=== PATIENT | female | born 1950 | race Caucasian/White ===

== ENCOUNTER → 2019-03-27 08:34 | Outpatient (CLI) | payer MEDICARE, OTHER, SELFPAY ==
--- NOTE | 2019-03-27 | DI.RAD.S_ITS ---
PROCEDURE: FL KNEE INJECTION MR/CT RT INDICATIONS: RIGHT KNEE PAIN TECHNIQUE: The indications, alternatives, benefits, risks, and complications of the procedure were explained to the patient. Written informed consent was obtained and placed in the chart. The knee was examined fluoroscopically, and a site chosen for knee joint injection. The skin was prepped and draped in a sterile fashion, and 1% Lidocaine infiltrated from the skin down to the articular surface. A hypodermic needle was then introduced into the joint and iodinated contrast media was instilled to confirm the intra-articular needle tip placement. This was followed by approximately 50 mL dilute solution of a gadolinium containing MR contrast agent. The needle was removed and a bandage was applied. An Joshua wrap was then applied around the knee joint to keep the contrast from collecting in the suprapatellar recess. The patient experienced no complications throughout the procedure and left the fluoroscopic suite in no apparent distress. FINDINGS: Single fluoroscopic spot image demonstrates intra-articular location to injected iodinated contrast. IMPRESSION: Successful fluoroscopically guided administration of dilute Gadolinium solution into the knee joint for MR arthrogram. Dictated by: Esperanza Kaur M.D. on 03/27/2019 at 10:32 Approved by: Esperanza Kaur M.D. on 03/27/2019 at 10:32
--- NOTE | 2019-03-27 | DI.MRI.S_ITS ---
PROCEDURE: MR KNEE RT W CON INDICATIONS: RIGHT KNEE PAIN TECHNIQUE: After the administration of 50 mL of dilute intra-articular Gadolinium contrast, sagittal T1 spin echo with fat saturation and PD fast spin echo with fat saturation, coronal T1 spin echo with and without fat saturation, coronal T2 fast spin echo with fat saturation, axial PD fast spin echo with fat saturation through the knee. COMPARISON: [facility], [place], [place] KNEE INJECTION MR/CT RT, 03/27/2019, 9:07. FINDINGS: Image quality: Excellent. Menisci: There is a horizontal tear involving the anterior horn and body of the lateral meniscus, extending to the anterior root ligament. The medial meniscus demonstrates normal morphology and internal signal. Cruciate ligaments: The anterior and posterior cruciate ligaments appear intact. Medial structures: The medial collateral ligament appears intact. The semimembranosus tendon and meniscocapsular junction appear intact. Visualized portions of the pes anserinus tendons appear normal. No abnormal bursal fluid. Lateral structures: The lateral collateral ligament and the biceps femoris tendon appear intact. The popliteus tendon appears normal. Iliotibial band appears normal. Anterior structures: The quadriceps and patellar tendons appear intact. Mild lateral subluxation of patella. No femoral trochlear dysplasia or ventral trochlear prominence. No edema in the infrapatellar fat pad. Bone and cartilage: No bone marrow contusions or fractures. There is tricompartmental cartilage loss, most pronounced and severe in the lateral femorotibial compartment. Joint space: There is a moderate-sized Acharya's cyst. Normal appearing synovial plicae are incidentally noted. There is a 5 mm intra-articular body in the left anterior knee joint. IMPRESSION: 1. Horizontal tear of the anterior horn and body of the lateral meniscus. 2. Tricompartmental cartilage loss. 3. A 5 mm intrathecal body in the left anterior knee joint. Dictated by: Esperanza Kaur M.D. on 03/27/2019 at 10:33 Approved by: Esperanza Kaur M.D. on 03/27/2019 at 11:49
== END ==
PROVIDERS: PCP Family Medicine; Visit Provider Family Medicine
DX: M25.561 Pain in right knee (principal); S83.281A Other tear of lateral meniscus, current injury, right knee, initial encounter; M71.21 Synovial cyst of popliteal space [Baker], right knee
CPT/HCPCS: 27369; 73722; 77002

== ENCOUNTER 2019-11-04 11:35 | Emergency (ER) | payer MEDICARE, OTHER, SELFPAY ==
[2019-11-04 11:40] VITALS: BP 154/77; PULSE 86; RESP 18; O2SAT 100
--- NOTE | 2019-11-04 11:55 | ED.GENADULT ---
HPI - General Adult <BRANDON Alba-BC - Last Filed: 11/04/19 17:25> General Chief complaint: Back Pain/Injury Stated complaint: fell 5 times last night, left leg weakness Time Seen by Provider: 11/04/19 11:45 Source: patient and family Mode of arrival: Ambulatory Limitations: no limitations History of Present Illness HPI narrative: The patient is a 69-year-old female nonsmoker with history of hypertension hyperlipidemia who presents with a chief complaint of left leg weakness. She states that 18 hours ago, she started having pain in her lower back radiating down the back of her left leg. She feels like her leg is ? at times she denies any numbness or tingling. She denies any precipitating injury. She denies any other weakness, headache chest pain shortness of breath nausea vomiting diarrhea abdominal pain. She states that she has some pain in her knees from when she landed. She and her deny any confusion, slurred speech. She states that the left leg weakness sensation started with lower back pain. She also complains of left knee pain from 1 of her falls yesterday. She denies any visual deficits, fevers. The patient states that she did take an unknown muscle relaxer last night at 7:00 p.m. to help with her lower back pain. The patient describes the pain in her lower back as shooting, tingling electricity. Related Data Previous Rx's Medication Instructions Recorded ketorolac 10 mg PO TID PRN #15 tab 11/04/19 lidocaine 1 patch TOP DAILY PRN #15 each 11/04/19 Review of Systems <MAYO Alba - Last Filed: 11/04/19 17:25> Review of Systems Narrative: GENERAL: Denies chills, fatigue, malaise, fever, sweats. HEENT: Denies sinus pain, ear pain, sore throat, difficulty swallowing, dizziness. RESPIRATORY: Denies dyspnea, cough, wheezing, hemoptysis, sputum. CARDIOVASCULAR: Denies chest pain, palpitations, orthopnea, edema, GASTROINTESTINAL: Denies nausea, vomiting, abdominal pain, diarrhea, constipation, melena. : Denies dysuria, frequency, incontinence, hematuria, urinary retention. MUSCULOSKELETAL: See HPI SKIN: Denies rash, skin lesions, or other NEUROLOGIC: See HPI PSYCHIATRIC: No concerning psychosocial issues. 12 point review of systems is negative except for those stated above Patient History <DARIA Alba - Last Filed: 11/04/19 17:25> Social History Smoking Status: Never smoker Exam <DARIA Alba - Last Filed: 11/04/19 17:25> Narrative Exam Narrative: GENERAL: This is a well-nourished, well-developed patient, in no acute distress HEAD: Atraumatic. Normocephalic. No temporal or scalp tenderness. EYES: Pupils equal round and reactive. Extraocular motions intact. No scleral icterus. No injection or drainage. ENT: Nose without bleeding, purulent drainage or septal hematoma. Throat without erythema, tonsillar hypertrophy or exudate. Uvula midline. Airway patent. NECK: Trachea midline. No JVD or lymphadenopathy. Supple, nontender, no meningeal signs. CARDIOVASCULAR: Regular rate and rhythm without murmurs, gallops, or rubs. RESPIRATORY: Clear to auscultation. Breath sounds equal bilaterally. No cough. No increased respiratory effort. No accessory muscle use. GASTROINTESTINAL: Abdomen soft, non-tender, nondistended. No hepato-splenomegaly, or palpable masses. No guarding. EXTREMITIES: No clubbing, cyanosis, or edema. No joint tenderness, effusion, or edema noted. Strength is equal upper and lower extremities bilaterally. BACK: No pain to cervical or thoracic spine. Pain to lumbar spine palpation. No palpable step-offs or deformities. NEURO: AOx3. Sensation intact upper and lower extremities bilaterally. No gross cranial nerve deficit. Finger-nose test intact. SKIN: Slight ecchymosis noted on prepatellar region of left knee. Initial Vital Signs Initial Vital Signs: Vital Signs Pulse Rate 86 11/04/19 11:40 Respiratory Rate 18 11/04/19 11:40 Blood Pressure 154/77 H 11/04/19 11:40 Pulse Oximetry 100 11/04/19 11:40 <Tao Ly DO - Last Filed: 11/04/19 19:53> Initial Vital Signs Initial Vital Signs: Vital Signs Pulse Rate 86 11/04/19 11:40 Respiratory Rate 18 11/04/19 11:40 Blood Pressure 154/77 H 11/04/19 11:40 Pulse Oximetry 100 11/04/19 11:40 Scores <MAYO AlbaBC - Last Filed: 11/04/19 17:25> GCS [place] coma scale eye opening: Spontaneous [place] coma scale verbal response: Orientated [place] coma scale motor response: Obey commands [place] coma scale total score: 15 NIH Stroke Scale Level of Conciousness: Alert, keenly responsive Ask month/age: Answers both questions correctly. Open/close eyes, close hand: Performs both tasks correctly Best gaze horizontal: Normal Facial palsy: Normal symetrical movement Left arm drift: No drift for full 10 sec Right arm drift: No drift for full 10 sec Left leg drift: No drift for full 10 sec Right leg drift: No drift for full 10 sec Limb ataxia: Absent Best language: No aphasia, normal Dysarthria: Normal Extinction or inattention: No abnormality Course <DARIA Alba - Last Filed: 11/04/19 17:25> Orders Ordered: ED Orders 11/04/19 12:06 CT head/brain wo con Stat XR knee LT 3V Stat XR lumbar spine 2-3V Stat 11/04/19 13:00 Complete Blood Count AUTO DIFF Stat Comprehensive Metabolic Panel Stat Partial Thromboplastin Time Stat Prothrombin Time INR Stat Discontinued Medications Ketorolac Tromethamine (Toradol) 30 mg IM NOW ONE Stop: 11/04/19 13:42 Last Admin: 11/04/19 13:47 Dose: 30 mg Documented by: LOUISE Lidocaine (Lidoderm) 1 each TOP NOW ONE Stop: 11/04/19 13:29 Last Admin: 11/04/19 13:47 Dose: 1 each Documented by: LOUISE Prednisone (Deltasone) 60 mg PO NOW ONE Stop: 11/04/19 13:29 Vital Signs Vital signs: Vital Signs - 8 hr 11/04/19 13:55 Pulse Rate 79 Blood Pressure [Right Arm] 155/72 H Pulse Oximetry 98 <Tao Ly DO - Last Filed: 11/04/19 19:53> Orders Ordered: ED Orders 11/04/19 12:06 CT head/brain wo con Stat XR knee LT 3V Stat XR lumbar spine 2-3V Stat 11/04/19 13:00 Complete Blood Count AUTO DIFF Stat Comprehensive Metabolic Panel Stat Partial Thromboplastin Time Stat Prothrombin Time INR Stat Discontinued Medications Ketorolac Tromethamine (Toradol) 30 mg IM NOW ONE Stop: 11/04/19 13:42 Last Admin: 11/04/19 13:47 Dose: 30 mg Documented by: LOUISE Lidocaine (Lidoderm) 1 each TOP NOW ONE Stop: 11/04/19 13:29 Last Admin: 11/04/19 13:47 Dose: 1 each Documented by: LOUISE Prednisone (Deltasone) 60 mg PO NOW ONE Stop: 11/04/19 13:29 Vital Signs Vital signs: Vital Signs - 8 hr 11/04/19 13:55 Pulse Rate 79 Blood Pressure [Right Arm] 155/72 H Pulse Oximetry 98 Medical Decision Making <Nely Bobby, BRANDON-BC - Last Filed: 11/04/19 17:25> Lab Data Result diagrams: 11/04/19 13:00 11/04/19 13:00 Labs: Lab Results 11/04/19 11/04/19 11/04/19 Range/Units 13:00 13:00 13:00 WBC 5.1 (4.5-11.0) X10^3/uL RBC 3.96 L (4.0-5.2) X10^6/uL Hgb 12.3 (12.0-16.0) g/dL Hct 37.0 (36-46) % MCV 93.3 (80-100) fL MCH 30.9 (26-34) PG MCHC 33.2 (30-36) % RDW 13.2 (11.6-14.8) % Plt Count 252 (150-400) X10^3/uL Neut % (Auto) 46.5 L (50-75) % Lymph % (Auto) 35.0 (25-40) % Swisher % (Auto) 8.6 (3-14) % Eos % (Auto) 9.2 H (2-4) % Baso % (Auto) 0.7 (0-2) % Neut # (Auto) 2400 (6335-2499) /uL Lymph # (Auto) 1800 (7379-7313) /uL Swisher # (Auto) 400 (0-900) /uL Eos # (Auto) 500 H (0-450) /uL Baso # (Auto) 0 (0-100) /uL PT 11.5 (10.1-12.7) SECONDS INR 1.0 (0.9-1.3) APTT 31 (26.4-36.2) SECONDS Sodium 142 (137-145) mmol/L Potassium 4.0 (3.4-5.1) mmol/L Chloride 105 (98-107) mmol/L Carbon Dioxide 28 (22-32) mmol/L BUN 15 (7-17) mg/dL Creatinine 0.70 (0.52-1.04) mg/dL Estimated GFR > 60.0 (>60) mL/min BUN/Creatinine Ratio 21.4 (6-22) Glucose 120 H (80-110) mg/dL Calcium 9.3 (8.4-10.2) mg/dL Total Bilirubin 0.5 (0.2-1.3) mg/dL AST 31 (14-36) IU/L ALT 21 (<35) IU/L Alkaline Phosphatase 82 (38-126) U/L Total Protein 7.6 (6.3-8.2) g/dL Albumin 4.3 (3.5-5.0) g/dL Globulin 3.3 (1.7-4.1) g/dL Albumin/Globulin Ratio 1.3 (1.0-2.8) Urine Dip Bedside Urine Glucose Negative Bedside Urine Bilirubin - Negative Bedside Urine Ketone - Negative Urine Specific Leslie 1.010 Bedside Urine Occult Blood - Negative Bedside Urine pH 7.0 Bedside Urine Protein - Negative Bedside Urine Urobilinogen - Negative Bedside Urine Nitrite - Negative Bedside Urine Leukocytes - Negative Esterase Point of care testing: Urine Dip Bedside Urine Glucose Negative Bedside Urine Bilirubin - Negative Bedside Urine Ketone - Negative Urine Specific Leslie 1.010 Bedside Urine Occult Blood - Negative Bedside Urine pH 7.0 Bedside Urine Protein - Negative Bedside Urine Urobilinogen - Negative Bedside Urine Nitrite - Negative Bedside Urine Leukocytes - Negative Esterase Imaging Data Extremity x-ray #1: Radiologist's Impression: [address] [place] [id number] XRay Report Signed Patient: Kacy Martínez LMR#: [id number] : 1950cct:[id number] Age/Sex: 69 / FDate of Service: 11/04/19 Loc: ED Accession Number: [id number] Procedure: XR knee LT 3V Ordering Provider: Nely Bobby- PROCEDURE: XR KNEE LT 3V INDICATIONS: pain sp fall TECHNIQUE: 3 views of the knee were acquired. COMPARISON: None. FINDINGS: Bones: No fractures or dislocations. No suspicious bony lesions. Mild degenerative changes within the patellofemoral compartment are present. Soft tissues: No joint effusion. No suspicious soft tissue calcifications. IMPRESSION: No acute fractures of the left knee. Dictated by: Dillon Garza M.D. on 11/04/2019 at 11:45 CT scan - head: Radiologist's Impression: [address] [place] [id number] Scan Report Signed Patient: Kacy Martínez LMR#: [id number] : 2Acct:[id number] Age/Sex: 69 / FDate of Service: 11/04/19 Loc: ED Accession Number: [id number] Procedure: CT head/brain wo con Ordering Provider: Nely Bobby CUSTOMER DEVELOPMENT MANAGER- PROCEDURE: CT HEAD/BRAIN WO CON INDICATIONS: left leg weakness TECHNIQUE: Noncontrast 4.5 mm thick angled axial sections acquired from the foramen magnum to the vertex, with coronal and sagittal reformats. For radiation dose reduction, the following was used: automated exposure control, adjustment of mA and/or kV according to patient size. COMPARISON: [facility], MR, BRAIN ([facility]) W&WO CONTRAST, 09/09/2014, 16:41. FINDINGS: Image quality: Excellent. CSF spaces: Basal cisterns are patent. No extra-axial fluid collections. Ventricles are normal in size and shape. Brain: No midline shift. No intracranial masses or hemorrhage. Serrano-white matter interface is normal. Skull and face: Calvarium and visualized facial bones are intact, without suspicious lesions. Sinuses: Visualized sinuses and mastoids are clear. IMPRESSION: Negative head CT. No acute intracranial hemorrhage. Dictated by: Dillon Garza M.D. on 11/04/2019 at 11:49 Approved by: Dillon Garza M.D. on 11/04/2019 at 11:49 lumbar xray : Radiologist's Impression: [address] [place] [id number] XRay Report Signed Patient: Kacy Martínez LMR#: [id number] : 2Acct:[id number] Age/Sex: 69 / FDate of Service: 11/04/19 Loc: ED Accession Number: [id number] Procedure: XR lumbar spine 2-3V Ordering Provider: Nely Bobby PROCEDURE: XR LUMBAR SPINE 2-3V INDICATIONS: pain TECHNIQUE: 3 views of the lumbar spine were acquired. COMPARISON: None. FINDINGS: Bones: There are 5 lumbar-type vertebral bodies. The lowest intervertebral disk space is designated as L5-S1. The vertebral body heights are well-maintained without evidence to suggest an acute compression fracture. The bone mineralization is within normal limits. There is grade 1 anterolisthesis of L4 and L5 by approximately 5 mm. No definite pars interarticularis defects are evident. Moderate multilevel degenerative changes of the lumbar spine are primarily evident involving the mid to lower lumbar facet joints. Intervertebral disc heights are relatively well-maintained. Degenerative changes of the sacroiliac joints and bilateral hips are not well characterized. Soft tissues: There is aortic atherosclerosis. Clips within the pelvis are suggestive of prior tubal ligation. soft tissues of the imaged abdomen and pelvis are within normal limits. IMPRESSION: 1. No displaced lumbar fractures. 2. Moderate degenerative changes of the lumbar spine. 3. Grade 1 spondylolisthesis at L4-5. Dictated by: Dillon Garza M.D. on 11/04/2019 at 11:45 Approved by: Dillon Garza M.D. on 11/04/2019 at 11:47 MDM Narrative Medical decision making narrative: The patient is a 69-year-old male who presents with a chief complaint of 18 hours of left leg weakness. Her NIH is 0, she has a normal head CT, given the correlating lower back pain, this pain is likely due to sciatica. I offered prednisone, but the patient does not take steroids. We elected to do Toradol and she states understand not combining that with any other NSAIDs. She responded well to a single dose of Toradol. She is able to ambulate around the emergency department with no acute concerns. I discussed at length the importance of follow-up with primary care provider, come back emergency department for any acute concerns. Patient has no questions or concerns upon discharge and states understanding of return precautions as well as follow-up care. <Tao Ly DO - Last Filed: 11/04/19 19:53> Lab Data Labs: Lab Results 02/23/20 02/23/20 02/23/20 Range/Units 13:00 13:00 13:00 WBC 5.1 (4.5-11.0) X10^3/uL RBC 3.96 L (4.0-5.2) X10^6/uL Hgb 12.3 (12.0-16.0) g/dL Hct 37.0 (36-46) % MCV 93.3 (80-100) fL MCH 30.9 (26-34) PG MCHC 33.2 (30-36) % RDW 13.2 (11.6-14.8) % Plt Count 252 (150-400) X10^3/uL Neut % (Auto) 46.5 L (50-75) % Lymph % (Auto) 35.0 (25-40) % Swisher % (Auto) 8.6 (3-14) % Eos % (Auto) 9.2 H (2-4) % Baso % (Auto) 0.7 (0-2) % Neut # (Auto) 2400 (0706-1420) /uL Lymph # (Auto) 1800 (2159-2003) /uL Swisher # (Auto) 400 (0-900) /uL Eos # (Auto) 500 H (0-450) /uL Baso # (Auto) 0 (0-100) /uL PT 11.5 (10.1-12.7) SECONDS INR 1.0 (0.9-1.3) APTT 31 (26.4-36.2) SECONDS Sodium 142 (137-145) mmol/L Potassium 4.0 (3.4-5.1) mmol/L Chloride 105 (98-107) mmol/L Carbon Dioxide 28 (22-32) mmol/L BUN 15 (7-17) mg/dL Creatinine 0.70 (0.52-1.04) mg/dL Estimated GFR > 60.0 (>60) mL/min BUN/Creatinine Ratio 21.4 (6-22) Glucose 120 H (80-110) mg/dL Calcium 9.3 (8.4-10.2) mg/dL Total Bilirubin 0.5 (0.2-1.3) mg/dL AST 31 (14-36) IU/L ALT 21 (<35) IU/L Alkaline Phosphatase 82 (38-126) U/L Total Protein 7.6 (6.3-8.2) g/dL Albumin 4.3 (3.5-5.0) g/dL Globulin 3.3 (1.7-4.1) g/dL Albumin/Globulin Ratio 1.3 (1.0-2.8) Urine Dip Bedside Urine Glucose Negative Bedside Urine Bilirubin - Negative Bedside Urine Ketone - Negative Urine Specific Leslie 1.010 Bedside Urine Occult Blood - Negative Bedside Urine pH 7.0 Bedside Urine Protein - Negative Bedside Urine Urobilinogen - Negative Bedside Urine Nitrite - Negative Bedside Urine Leukocytes - Negative Esterase Point of care testing: Urine Dip Bedside Urine Glucose Negative Bedside Urine Bilirubin - Negative Bedside Urine Ketone - Negative Urine Specific Leslie 1.010 Bedside Urine Occult Blood - Negative Bedside Urine pH 7.0 Bedside Urine Protein - Negative Bedside Urine Urobilinogen - Negative Bedside Urine Nitrite - Negative Bedside Urine Leukocytes - Negative Esterase Discharge Plan Departure Patient Disposition: Home Clinical Impression: Lumbar back pain Acute low back pain Qualifiers: Back pain laterality: left Sciatica presence: with sciatica Sciatica laterality: sciatica of left side Qualified Code(s): M54.42 - Lumbago with sciatica, left side Acute knee pain Qualifiers: Laterality: left Qualified Code(s): M25.562 - Pain in left knee Discharge Date/Time: 11/04/19 14:51 Instructions: DI for Low Back Pain, DI for Sciatica, How To Perform RICE (Rest, Ice, Compress, Elevate), DI for Knee Pain Activity Restrictions/Additional Instructions: As discussed, I sent in a prescription of Toradol as well as lidocaine patches to [facility] As discussed your x-rays came back with no acute fractures. I have given you a prescription of Toradol. This is an NSAID. Do not combine it with other NSAIDs such as Aleve or ibuprofen. I suggest taking it with some food, as it can irritate your stomach. Please follow-up with primary care provider next few days. Please come back to the emergency department for any acute concerns. Please remember this includes incontinence of bowel, numbness in your groin or any acute concerns Prescriptions: New ketorolac 10 mg tablet 10 mg PO TID PRN (Reason: pain) Qty: 15 RF: 0 lidocaine 5 % adhesive patch,medicated 1 patch TOP DAILY PRN (Reason: pain ) Qty: 15 RF: 0 Referrals: Karena Richey MD [Primary Care Provider] -
--- NOTE | 2019-11-04 12:06 | DI.RAD.S_ITS ---
PROCEDURE: XR LUMBAR SPINE 2-3V INDICATIONS: pain TECHNIQUE: 3 views of the lumbar spine were acquired. COMPARISON: None. FINDINGS: Bones: There are 5 lumbar-type vertebral bodies. The lowest intervertebral disk space is designated as L5-S1. The vertebral body heights are well-maintained without evidence to suggest an acute compression fracture. The bone mineralization is within normal limits. There is grade 1 anterolisthesis of L4 and L5 by approximately 5 mm. No definite pars interarticularis defects are evident. Moderate multilevel degenerative changes of the lumbar spine are primarily evident involving the mid to lower lumbar facet joints. Intervertebral disc heights are relatively well-maintained. Degenerative changes of the sacroiliac joints and bilateral hips are not well characterized. Soft tissues: There is aortic atherosclerosis. Clips within the pelvis are suggestive of prior tubal ligation. soft tissues of the imaged abdomen and pelvis are within normal limits. IMPRESSION: 1. No displaced lumbar fractures. 2. Moderate degenerative changes of the lumbar spine. 3. Grade 1 spondylolisthesis at L4-5. Dictated by: Dillon Garza M.D. on 11/04/2019 at 11:45 Approved by: Dillon Garza M.D. on 11/04/2019 at 11:47
--- NOTE | 2019-11-04 12:06 | DI.CT.S_ITS ---
PROCEDURE: CT HEAD/BRAIN WO CON INDICATIONS: left leg weakness TECHNIQUE: Noncontrast 4.5 mm thick angled axial sections acquired from the foramen magnum to the vertex, with coronal and sagittal reformats. For radiation dose reduction, the following was used: automated exposure control, adjustment of mA and/or kV according to patient size. COMPARISON: [facility], MR, BRAIN ([facility]) W&WO CONTRAST, 09/09/2014, 16:41. FINDINGS: Image quality: Excellent. CSF spaces: Basal cisterns are patent. No extra-axial fluid collections. Ventricles are normal in size and shape. Brain: No midline shift. No intracranial masses or hemorrhage. Serrano-white matter interface is normal. Skull and face: Calvarium and visualized facial bones are intact, without suspicious lesions. Sinuses: Visualized sinuses and mastoids are clear. IMPRESSION: Negative head CT. No acute intracranial hemorrhage. Dictated by: Dillon Garza M.D. on 11/04/2019 at 11:49 Approved by: Dillon Garza M.D. on 11/04/2019 at 11:49
--- NOTE | 2019-11-04 12:06 | DI.RAD.S_ITS ---
PROCEDURE: XR KNEE LT 3V INDICATIONS: pain sp fall TECHNIQUE: 3 views of the knee were acquired. COMPARISON: None. FINDINGS: Bones: No fractures or dislocations. No suspicious bony lesions. Mild degenerative changes within the patellofemoral compartment are present. Soft tissues: No joint effusion. No suspicious soft tissue calcifications. IMPRESSION: No acute fractures of the left knee. Dictated by: Dillon Garza M.D. on 11/04/2019 at 11:45 Approved by: Dillon Garza M.D. on 11/04/2019 at 11:45
[2019-11-04 13:20] LABS: Prothrombin Time 11.5 SECONDS (10.1-12.7)
[2019-11-04 13:23] LABS: PTT Partial Thromboplastin Tim 31 SECONDS (26.4-36.2)
[2019-11-04 13:25] LABS: Add Manual Diff / Slide Review NO; Basophils Absolute Auto 0 /uL (0-100); Basophils Percent Auto 0.7 % (0-2); Eosinophils Absolute Auto 500 /uL (0-450); Eosinophils Percent Auto 9.2 % (2-4); Hemoglobin 12.3 g/dL (12.0-16.0); Lymphocytes Absolute Auto 1800 /uL (1100-4500); Mean Corpuscular HGB Conc 33.2 % (30-36); Mean Corpuscular Hemoglobin 30.9 PG (26-34); Mean Corpuscular Volume 93.3 fL (80-100); Monocytes Absolute Auto 400 /uL (0-900); Monocytes Percent Auto 8.6 % (3-14); Neutrophils Absolute Auto 2400 /uL (1500-7000); Neutrophils Percent Auto 46.5 % (50-75); Platelet Count 252 X10^3/uL (150-400); Red Blood Cell Count 3.96 X10^6/uL (4.0-5.2); Red Cell Distribution Width 13.2 % (11.6-14.8); White Blood Cell Count 5.1 X10^3/uL (4.5-11.0)
[2019-11-04 13:29] LABS: Alanine Aminotransferase 21 IU/L (<35); Albumin 4.3 g/dL (3.5-5.0); Albumin Globulin Ratio 1.3 (1.0-2.8); Alkaline Phosphatase 82 U/L (38-126); Aspartate Aminotransferase 31 IU/L (14-36); BUN Creatinine Ratio 21.4 (6-22); Bilirubin Total 0.5 mg/dL (0.2-1.3); Blood Urea Nitrogen 15 mg/dL (7-17); Calcium 9.3 mg/dL (8.4-10.2); Carbon Dioxide 28 mmol/L (22-32); Chloride 105 mmol/L (98-107); Estimated Glomerular Filt Rate > 60.0 mL/min (>60); Globulin 3.3 g/dL (1.7-4.1); Glucose 120 mg/dL (80-110); HEMOLYSIS < 15 (0-50); Sodium 142 mmol/L (137-145); Total Protein 7.6 g/dL (6.3-8.2)
[2019-11-04] MEDS: LIDOCAINE PATCH 1 EACH ADH..PATCH TOP (13:47)
[2019-11-04] MEDS: KETOROLAC 60 MG/2 ML VIAL 30 MG IM (13:47)
[2019-11-04 13:55] VITALS: BP 155/72; PULSE 79; O2SAT 98
== END 2019-11-04 14:51 | disposition home or self-care (01) ==
PROVIDERS: Emergency Provider Nurse Practitioner Family; PCP Family Medicine
DX: M54.6 Pain in thoracic spine (principal); M54.42 Lumbago with sciatica, left side; M25.562 Pain in left knee; R53.1 Weakness; W19.XXXA Unspecified fall, initial encounter; R29.6 Repeated falls
CPT/HCPCS: 70450; 72100; 73562; 80053; 81003; 85025; 85610; 85730; 96372; 99284; J1885

== ENCOUNTER → 2020-08-18 15:57 | Outpatient (CLI) | payer MEDICARE, OTHER, SELFPAY ==
--- NOTE | 2020-08-18 | DI.MG.S_ITS ---
BILATERAL DIGITAL SCREENING MAMMOGRAM 3D/2D WITH CAD: 08/18/2020 CLINICAL: Routine screening. Comparison is made to exams dated: 08/11/2018 mammogram, 07/20/2017 mammogram, and 03/17/2015 mammogram - outside location. The tissue of both breasts is heterogeneously dense. This may lower the sensitivity of mammography. Current study was also evaluated with a Computer Aided Detection (CAD) system. No significant masses, calcifications, or other findings are seen in either breast. There has been no significant interval change. IMPRESSION: NEGATIVE There is no mammographic evidence of malignancy. A 1 year screening mammogram is recommended. This exam was interpreted at Station ID: [id number]. NOTE: For mammograms, a report in lay terms will be sent to the patient. Approximately 15% of breast malignancies will not be visualized mammographically. In the management of a palpable breast mass, a negative mammogram must not discourage biopsy of a clinically suspicious lesion. Electronically Signed By: Rashel solo/sanjay:08/18/2020 19:43:57 letter sent: Normal Exam ACR BI-RADS Category 1: Negative 3341F
== END ==
PROVIDERS: PCP Family Medicine; Referring Provider Family Medicine; Visit Provider Family Medicine
DX: Z12.31 Encounter for screening mammogram for malignant neoplasm of breast (principal)
CPT/HCPCS: 77063; 77067

== ENCOUNTER → 2021-08-29 11:10 | Outpatient (CLI) | payer MEDICARE, OTHER, SELFPAY ==
--- NOTE | 2021-08-29 11:12 | DI.MG.S_ITS ---
BILATERAL DIGITAL SCREENING MAMMOGRAM 3D/2D WITH CAD: 08/29/2021 CLINICAL: Routine screening. Comparison is made to exams dated: 08/18/2020 mammogram - [facility], 08/11/2018 mammogram, and 07/20/2017 mammogram - outside location. The tissue of both breasts is heterogeneously dense. This may lower the sensitivity of mammography. Current study was also evaluated with a Computer Aided Detection (CAD) system. No significant masses, calcifications, or other findings are seen in either breast. There has been no significant interval change. IMPRESSION: NEGATIVE There is no mammographic evidence of malignancy. A 1 year screening mammogram is recommended. This exam was interpreted at Station ID: [id number]. NOTE: For mammograms, a report in lay terms will be sent to the patient. Approximately 15% of breast malignancies will not be visualized mammographically. In the management of a palpable breast mass, a negative mammogram must not discourage biopsy of a clinically suspicious lesion. Electronically Signed By: Rashel solo/sanjay:08/31/2021 08:14:40 letter sent: Normal Exam ACR BI-RADS Category 1: Negative [id number]
== END ==
PROVIDERS: PCP Orthopaedic Surgery; Referring Provider Orthopaedic Surgery; Visit Provider Orthopaedic Surgery
DX: Z12.31 Encounter for screening mammogram for malignant neoplasm of breast (principal)
CPT/HCPCS: 77063; 77067

== ENCOUNTER → 2021-09-08 11:21 | Outpatient (CLI) | payer MEDICARE, OTHER, SELFPAY ==
--- NOTE | 2021-09-08 | DI.RAD.S_ITS ---
PROCEDURE: XR DEXA AXIAL SKELETON INDICATIONS: Other specified health status COMPARISON: None. FINDINGS: This blank DEXA report has been sent in error by the PACS system. The correct and complete report will be forthcoming in 1-2 days. Thank you for your patience and understanding. Dictated by: Rabia Lozada MD, PhD on 09/08/2021 at 12:31 Approved by: Rabia Lozada MD, PhD on 09/08/2021 at 12:31
== END ==
PROVIDERS: PCP Family Medicine; Referring Provider Family Medicine; Visit Provider Family Medicine
DX: M85.851 Other specified disorders of bone density and structure, right thigh (principal); Z78.0 Asymptomatic menopausal state
CPT/HCPCS: 77080

== ENCOUNTER → 2023-12-13 08:16 | Outpatient (CLI) | payer MEDICARE, OTHER, SELFPAY ==
--- NOTE | 2023-12-13 08:17 | DI.US.S_ITS ---
PROCEDURE: US THYROID INDICATIONS: HYPOTHYROIDISM TECHNIQUE: Real-time scanning was performed of the thyroid gland, with image documentation. COMPARISON: None. FINDINGS: Thyroid: The thyroid is not well seen. No thyroid masses are seen. IMPRESSION: The thyroid is not well seen and is believed to be atrophic. ACR TI-RADS definitions and recommendations: TI-RADS 1 (benign): 0 points. FNA not needed. TI-RADS 2 (not suspicious): 2 points. FNA not needed. TI-RADS 3 (mildly suspicious): 3 points. * FNA if 2.5 cm or larger, follow up if 1.5 cm or larger (at 1, 3, and 5 years). TI-RADS 4 (moderately suspicious): 4-6 points. * FNA if 1.5 cm or larger, follow up if 1 cm or larger (at 1, 2, 3, and 5 years). TI-RADS 5 (highly suspicious): 7 points or more. * FNA if 1 cm or larger, follow up if 0.5 cm or larger (every year for 5 years). Dictated by: Remigio Whittaker M.D. on 12/13/2023 at 10:51 Approved by: Remigio Whittaker M.D. on 12/13/2023 at 10:52
--- NOTE | 2023-12-13 08:18 | DI.RAD.S_ITS ---
Bone Density Report Name: TEE GRAY Age: 73 Sex: Female Ethnicity: White Date of : 1950 Indication: postmenopausal; screening for osteoporosis; Referring Provider: ANTHONY MAXWELL Study: Bone densitometry was performed. Exam Date: December 13, 2023 Accession number: [id number] Bone Density: Region BMD T-score Z-score Classification AP Spine(L1-L4) 0.981 -0.6 1.6 Normal Femoral Neck (Left) 0.671 -1.6 0.3 Osteopenia Total Hip (Left) 0.931 -0.1 1.5 Normal Femoral Neck (Right) 0.707 -1.3 0.6 Osteopenia Total Hip (Right) 0.898 -0.4 1.2 Normal Total Hip Mean 0.915 -0.3 1.4 Normal World Health Organization criteria for BMD impression classify patients as: Normal (T-score at or above -1.0), Osteopenia (T-score between -1.0 and -2.5), or Osteoporosis (T-score at or below -2.5). 10-year Fracture Risk(1): Major Osteoporotic Fracture 10% Hip Fracture 1.7% Reported Risk Factors: [place] (), Neck BMD=0.671, BMI=30.2 (1) FRAX(R) Version 3.08. Fracture probability calculated for an untreated patient. Fracture probability may be lower if the patient has received treatment. Previous Exams: -- Region Exam Age BMD T-score BMD Change BMD Change Date g/cm2 vs Baseline vs Previous -- AP Spine (L1-L4) 12/13/2023 73 0.981 -0.6 -0.003 (-0.4%)# -0.003 (-0.4%)# 09/08/2021 71 0.985 -0.6 Total Hip(Left) 12/13/2023 73 0.931 -0.1 -0.020 (-2.1%)# -0.020 (-2.1%)# 09/08/2021 71 0.952 0.1 Total Hip(Right) 12/13/2023 73 0.898 -0.4 0.031 (3.6%)# 0.031 (3.6%)# 09/08/2021 71 0.867 -0.6 -- *Denotes significance at 95% confidence level, LSC for AP Spine = 0.022 g/cm2, LSC for Total Hip = 0.027 g/cm2 # Denotes dissimilar scan types or analysis methods Impression: The patient has low bone mass, based on the Left Femoral Neck T-score. The patient has an estimated ten-year risk of hip fracture of 1.7% and an estimated ten-year risk of major fracture of 10%, based on the WHO FRAX algorithm. No significant bone loss was observed. Discussion: BONE DENSITY IS LOW AT ONE OR MORE SKELETAL SITES. This patient's lowest T-score is low at one or more skeletal sites. It meets the World Health Organization's (WHO) criteria for low bone mass (T-score between -1.0 and -2.5). The patient's 10-year risk of fracture as calculated by FRAX is less than the threshold where pharmacological therapy is recommended by the National Osteoporosis Foundation (NOF). However, all treatment decisions require clinical judgment and consideration of individual patient factors, including patient preferences, comorbidities, previous drug use, risk factors not captured in the FRAX model (e.g., frailty, falls, vitamin D deficiency, increased bone turnover, interval significant decline in bone density) and possible under or overestimation of fracture risk by FRAX. The patient should follow a healthful lifestyle (good nutrition with adequate calcium and vitamin D, and appropriate weight-bearing exercise). Follow-Up: Consider repeating this study in 2 to 3 years to reassess this patient's status, or sooner if there is some new clinical indication. Reported by: [facility] HOLLY JIM M.D. on 12/13/2023 9:03:00 AM.
== END ==
LOC: US 08:17
PROVIDERS: PCP Family Medicine; Referring Provider Nurse Practitioner Family; Visit Provider Nurse Practitioner Family
DX: Z78.0 Asymptomatic menopausal state (principal); E03.9 Hypothyroidism, unspecified; M85.852 Other specified disorders of bone density and structure, left thigh
CPT/HCPCS: 76536; 77080

== ENCOUNTER 2023-12-20 14:30 | Outpatient (RCR) | payer MEDICARE, OTHER, SELFPAY ==
--- NOTE | 2023-11-10 13:37 | PT.OIE ---
Current Diagnoses Mixed incontinence (11/10/23) Visit Care Team Role Provider Type Brando Escalante MD Primary Care Provider Non-Staff Specialty: Medical Address: [address] [place] [address], [id number] Email: Heri Felix MD Attending Provider Non-Staff Referring Provider Specialty: Medical Address: [address] [place] [address], [id number] Email: Physical Therapy Initial Evaluation PT-OP-A Visit Information Start: 11/10/23 08:07 Freq: Status: Active Protocol: Document 11/10/23 09:00 [facility] (Rec: 11/10/23 09:01 [facility] [id number]) Out-Patient Physical Therapy Visit Information Visit Information Visit Type Initial Evaluation Visit Start Time 09:00 Visit Stop Time 09:45 Visit Number 1 Evaluation Information Evaluation Date 11/10/23 PT-OP-B Current Condition Start: 11/10/23 08:07 Freq: Status: Active Protocol: Document 11/10/23 09:00 [facility] (Rec: 11/10/23 08:10 [facility] [id number]) Current Condition History of Current Condition Onset Date a couple of years ago History of Current Condition 73 year old female with mixed urinary incontinence and poor urinary sphincter tone Symptoms began with strong cough and sneeze and now she is also experiencing the urge to void as well. She wears a pad daily and she usually doesn't need to change it. Kacy reports she drinks a lot of water, she drinks 2 coffee 's per day. She has daily bowel movements but has had some recent c/o fecal smearing and very soft stool. 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 Prior Treatments and Tests hx of vuvlar cancer surgery approx 4 years ago., hx of 1 vaginal delivery. PT-OP-C Subjective Start: 11/10/23 08:07 Freq: Status: Active Protocol: Document 11/10/23 09:00 [facility] (Rec: 11/10/23 13:11 [facility] [id number]) Patient Questionnaires Pelvic Pain and Urgency/Frequency Patient Symptom Scale Pelvic Pain Score 7 PT-OP-I Pelvic Floor Start: 11/10/23 08:07 Freq: Status: Active Protocol: Document 11/10/23 09:00 [facility] (Rec: 11/10/23 13:15 [facility] [id number]) Pelvic Floor Assessment Urine Pelvic Floor Surgery Yes Urinary Symptoms Urge Sensation,Incomplete Emptying Other Urinary Symptoms urinary leakage with vigorous activity and strong urge to go Leakage Size Medium Leakage Cause Cough,Lifting,Sneeze,Urge Leaks Per Day 1-2 Voiding Frequency 6 Nocturia 1 Pads Used In 24 Hours 1-2 Urine Pad Type Maxi Pad Pelvic Clock Pelvic Clock 12-3 Atrophy Pelvic Clock 3-6 Atrophy Pelvic Clock 6-9 Atrophy Pelvic Clock 9-12 Atrophy Contraction Ability Voluntary Contraction Weak Voluntary Relaxation Weak Manual Muscle Testing Left 2 Manual Muscle Testing Right 2 Manual Muscle Testing Anterior 1 Manual Muscle Testing Posterior 2 Muscle Endurance (Seconds) 3 Comments Pelvic Floor Comments the left side of the levator ani has more tone to palpation than the right side but is also more guarded PT-OP-J Posture/Palpation/Skin Start: 11/10/23 08:07 Freq: Status: Active Protocol: Document 11/10/23 09:00 [facility] (Rec: 11/10/23 13:18 [facility] [id number]) Posture Evaluation Position Sitting Evaluation View Lateral Head/C-Spine Posture Forward Head T-Spine Posture Increased Kyphosis Shoulder Posture (L) Rounded,(R) Rounded Comments Posture Comments pt is seated in a forward posture with posterior pelvic tilt and forward lean. She presents with tightness of the pec minor bilaterally and has rounted shoulders. Tightness of the upper abdominal wall with thoracic rounding. PT-OP-M Strength Start: 11/10/23 08:07 Freq: Status: Active Protocol: Document 11/10/23 09:00 [facility] (Rec: 11/10/23 13:15 [facility] [id number]) Trunk Strength Trunk Manual Muscle Testing Testing Position Supine Flexion 3 Fair Comments decreased tone of the transverse abodominal musculature and decreased abdominal strength PT-OP-Q Treatments Start: 11/10/23 08:07 Freq: Status: Active Protocol: Document 11/10/23 09:00 [facility] (Rec: 11/10/23 09:47 [facility] [id number]) Self-Care/Home Management Treatment Education Patient Education Body Mechanics,Home Exercise Program,Posture Other Education pt was educated on body mechanics when lifting her bags of deer food. She was given a bladder diary for home to begin tracking when she gets the urge to void PT-OP-T Assessment and Plan Start: 11/10/23 08:07 Freq: Status: Active Protocol: Document 11/10/23 09:00 [facility] (Rec: 11/10/23 13:20 [facility] [id number]) Physical Therapy Assessment Rehab Potential Rehabilitation Potential Excellent Evaluation Complexity Number of Personal Factors/Comorbidities 0 Number of Body Systems Impaired 1-2 Clinical Presentation at Evaluation Stable Impairments Impairments Activity Tolerance,Posture, Soft Tissue Mobility,Strength, Tone Other Impairments Urinary stress and urge incontinence Goals 3 Impairment Mixed urinary incontinence that is occuring daily Short Term Goal (STG) Kacy is educated in bladder retraining and urge deference technique STG Duration 4 weeks Lens Cutter Goal (LTG) Kacy reports a overall reduction of urinary urgency and stress incontnence and she is able to decrease pad use to a mini pad only LTG Duration 12 weeks 2 Impairment Decreased pelvic floor muscle endurance as pt is only able to sustain a pelvic floor contraction for a few seconds in supine Short Term Goal (STG) Kacy is able to increase her endurance to a 10 second hold in supine STG Duration 5 weeks Lens Cutter Goal (LTG) Kacy is able to increase her endurance to a 5 second hold in standing LTG Duration 12 weeks 1 Impairment Decreased pelvic floor strength with 2/5 MMT for all wild of the levator ani Short Term Goal (STG) Kacy is educated on a HEP for pelivc floor muscle training STG Duration 5 weeks Lens Cutter Goal (LTG) Kacy is able to increase her pelvic floor muscle strength by at least one muscle grade for improved support of her bladder LTG Duration 12 weeks Assessment Summary Assessment Kacy is a 73 year old female referred to PT today with complaints of mixed urinary incontinence. SHe reports her symptoms began with urinary stress incontinence a couple of years ago. Recently they have progressed to include both stress and urgency. Kacy reports wearing a pad daily and often finds it will be wet towards the end of the day. She reports leaking in all positions including laying down. With exam today Kacy sits in a very rounded shoulder posture and posterior pelvic tilt. Time was spent discussing posture and how a forward positions can create more downward pressure on the bladder. She also reports lifing 50# bags of deer food frequently and she bends forward to do this. She does report low back pain but was not aware of the connection with back pain to pelvic floor dysfunction. She will benefit from body mechanics training and working up to pelvic floor bracing with lifting. With pelvic floor exam she is weak on all wild of the levator ani testing a 2 /5 MMT. She is able to facilitate a contraction of all the wild but has difficulty sustaining a contraction for more than a few seconds. Kacy is a good candidate for pelvic floor training using EMG biofeedback for strength and endurance training of the pelvic floor. Physical Therapy Plan Frequency and Duration Frequency of Treatment 1x/Week Duration of treatment (weeks) 12 Plan of Care Start Date 11/10/23 Plan of Care End Date 02/02/24 Therapeutic Interventions Therapeutic Interventions Home Exercise Program, Neuromuscular Re-education, Patient/Caregiver Education, Self-Care/Home Management, Therapeutic Exercises Modalities Biofeedback Next Visit Focus/Plan Next Note Type Treatment Note Next Visit Plan Review bladder diary given today and review pelvic floor isolation exercise, Begin EMG biofeedback for pelvic floor strength and endurance training, instruction on urge deference technique and bladder retraining
--- NOTE | 2023-11-10 13:37 | PT.OPPOC ---
Physical, Occupational & Speech Therapy At [facility] Current Diagnoses Mixed incontinence (11/10/23) Visit Care Team Role Provider Type Brando Escalante MD Primary Care Provider Non-Staff Specialty: Medical Address: [address] [place] [address], [address] Email: Heri Felix MD Attending Provider Non-Staff Referring Provider Specialty: Medical Address: [address] [place] [address], [address] Email: Plan Of Care PT-OP-T Assessment and Plan Start: 11/10/23 08:07 Freq: Status: Active Protocol: Document 11/10/23 09:00 [facility] (Rec: 11/10/23 13:20 [facility] [id number]) Physical Therapy Assessment Rehab Potential Rehabilitation Potential Excellent Evaluation Complexity Number of Personal Factors/Comorbidities 0 Number of Body Systems Impaired 1-2 Clinical Presentation at Evaluation Stable Impairments Impairments Activity Tolerance,Posture, Soft Tissue Mobility,Strength, Tone Other Impairments Urinary stress and urge incontinence Goals 3 Impairment Mixed urinary incontinence that is occurring daily Short Term Goal (STG) Kacy is educated in bladder retraining and urge deference technique STG Duration 4 weeks Loading Shovel Oiler Goal (LTG) Kacy reports a overall reduction of urinary urgency and stress incontinence and she is able to decrease pad use to a mini pad only LTG Duration 12 weeks 2 Impairment Decreased pelvic floor muscle endurance as pt is only able to sustain a pelvic floor contraction for a few seconds in supine Short Term Goal (STG) Kacy is able to increase her endurance to a 10 second hold in supine STG Duration 5 weeks Loading Shovel Oiler Goal (LTG) Kacy is able to increase her endurance to a 5 second hold in standing LTG Duration 12 weeks 1 Impairment Decreased pelvic floor strength with 2/5 MMT for all wild of the levator ani Short Term Goal (STG) Kacy is educated on a HEP for pelvic floor muscle training STG Duration 5 weeks Loading Shovel Oiler Goal (LTG) Kacy is able to increase her pelvic floor muscle strength by at least one muscle grade for improved support of her bladder LTG Duration 12 weeks Assessment Summary Assessment Kacy is a 73 year old female referred to PT today with complaints of mixed urinary incontinence. SHe reports her symptoms began with urinary stress incontinence a couple of years ago. Recently they have progressed to include both stress and urgency. Kacy reports wearing a pad daily and often finds it will be wet towards the end of the day. She reports leaking in all positions including laying down. With exam today Kacy sits in a very rounded shoulder posture and posterior pelvic tilt. Time was spent discussing posture and how a forward positions can create more downward pressure on the bladder. She also reports lifting 50# bags of deer food frequently and she bends forward to do this. She does report low back pain but was not aware of the connection with back pain to pelvic floor dysfunction. She will benefit from body mechanics training and working up to pelvic floor bracing with lifting. With pelvic floor exam she is weak on all wild of the levator ani testing a 2 /5 MMT. She is able to facilitate a contraction of all the wild but has difficulty sustaining a contraction for more than a few seconds. Kacy is a good candidate for pelvic floor training using EMG biofeedback for strength and endurance training of the pelvic floor. Physical Therapy Plan Frequency and Duration Frequency of Treatment 1x/Week Duration of treatment (weeks) 12 Plan of Care Start Date 11/10/23 Plan of Care End Date 02/02/24 Therapeutic Interventions Therapeutic Interventions Home Exercise Program, Neuromuscular Re-education, Patient/Caregiver Education, Self-Care/Home Management, Therapeutic Exercises Modalities Biofeedback Next Visit Focus/Plan Next Note Type Treatment Note Next Visit Plan Review bladder diary given today and review pelvic floor isolation exercise, Begin EMG biofeedback for pelvic floor strength and endurance training, instruction on urge deference technique and bladder retraining Plan of Care Dates Plan of Care Start Date 11/10/23 Plan of Care End Date 02/02/24 Electronically Signed by: Kristine Alford, PT 11/10/23 6118 If you are in agreement with this Plan of Care, please return a signed and dated copy. I have reviewed this Plan of Care and certify that the skilled therapy services above are required to meet the patient?s needs. Physician Signature Date Printed Name and Credentials Clinical Instructor Signature Printed Name and Credentials
--- NOTE | 2023-11-17 14:23 | PT.OTN ---
Current Diagnoses Mixed incontinence (11/17/23) Physical Therapy Treatment Note PT-OP-A Visit Information Start: 11/10/23 08:07 Freq: Status: Active Protocol: Document 11/17/23 09:03 [facility] (Rec: 11/17/23 09:45 [facility] [id number]) Out-Patient Physical Therapy Visit Information Visit Information Visit Type Treatment Note Visit Start Time 09:00 Visit Stop Time 09:45 Visit Number 2 PT-OP-B Current Condition Start: 11/10/23 08:07 Freq: Status: Active Protocol: Document 11/10/23 09:00 [facility] (Rec: 11/10/23 08:10 [facility] [id number]) Current Condition History of Current Condition Onset Date a couple of years ago History of Current Condition 73 year old female with mixed urinary incontinence and poor urinary sphincter tone Symptoms began with strong cough and sneeze and now she is also experiencing the urge to void as well. She wears a pad daily and she usually doesn't need to change it. Kacy reports she drinks a lot of water, she drinks 2 coffee 's per day. She has daily bowel movements but has had some recent c/o fecal smearing and very soft stool. 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 Prior Treatments and Tests hx of vuvlar cancer surgery approx 4 years ago., hx of 1 vaginal delivery. PT-OP-C Subjective Start: 11/10/23 08:07 Freq: Status: Active Protocol: Document 11/17/23 09:03 [facility] (Rec: 11/17/23 09:45 [facility] [id number]) OP-PT Subjective Patient Comments Patient Comments pt brings in her bladder diary , she reports that even after voiding she can note leakage. 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 PT-OP-I Pelvic Floor Start: 11/10/23 08:07 Freq: Status: Active Protocol: Document 11/10/23 09:00 [facility] (Rec: 11/10/23 13:15 [facility] [id number]) Pelvic Floor Assessment Urine Pelvic Floor Surgery Yes Urinary Symptoms Urge Sensation,Incomplete Emptying Other Urinary Symptoms urinary leakage with vigorous activity and strong urge to go Leakage Size Medium Leakage Cause Cough,Lifting,Sneeze,Urge Leaks Per Day 1-2 Voiding Frequency 6 Nocturia 1 Pads Used In 24 Hours 1-2 Urine Pad Type Maxi Pad Pelvic Clock Pelvic Clock 12-3 Atrophy Pelvic Clock 3-6 Atrophy Pelvic Clock 6-9 Atrophy Pelvic Clock 9-12 Atrophy Contraction Ability Voluntary Contraction Weak Voluntary Relaxation Weak Manual Muscle Testing Left 2 Manual Muscle Testing Right 2 Manual Muscle Testing Anterior 1 Manual Muscle Testing Posterior 2 Muscle Endurance (Seconds) 3 Comments Pelvic Floor Comments the left side of the levator ani has more tone to palpation than the right side but is also more guarded PT-OP-J Posture/Palpation/Skin Start: 11/10/23 08:07 Freq: Status: Active Protocol: Document 11/10/23 09:00 [facility] (Rec: 11/10/23 13:18 [facility] [id number]) Posture Evaluation Position Sitting Evaluation View Lateral Head/C-Spine Posture Forward Head T-Spine Posture Increased Kyphosis Shoulder Posture (L) Rounded,(R) Rounded Comments Posture Comments pt is seated in a forward posture with posterior pelvic tilt and forward lean. She presents with tightness of the pec minor bilaterally and has rounted shoulders. Tightness of the upper abdominal wall with thoracic rounding. PT-OP-M Strength Start: 11/10/23 08:07 Freq: Status: Active Protocol: Document 11/10/23 09:00 [facility] (Rec: 11/10/23 13:15 [facility] [id number]) Trunk Strength Trunk Manual Muscle Testing Testing Position Supine Flexion 3 Fair Comments decreased tone of the transverse abodominal musculature and decreased abdominal strength PT-OP-Q Treatments Start: 11/10/23 08:07 Freq: Status: Active Protocol: Document 11/17/23 09:03 [facility] (Rec: 11/17/23 09:45 [facility] [id number]) Therapeutic Exercises Supine Exercises quick pelvic floor contractions Reps/Minutes x 10 ball squeeze with pelvic floor engagement Reps/Minutes x 10 reps Comments average 22 and max of 54 pelvic floor long holds with EMG biofeedback Reps/Minutes x 10 reps holding 10 seconds relax 10 seconds Comments 15.9 and max 29 resting tone down to 6.0 EMG biofeedback resting tone Supine Exercise Name 14.1 uv begining resting tone Self-Care/Home Management Treatment Education Patient Education Home Exercise Program Other Education pt was educated on urge deference technique and bladder retraining, her bladder diary was reviewed. PT-OP-T Assessment and Plan Start: 02/29/24 08:07 Freq: Status: Active Protocol: Document 11/17/23 09:03 [facility] (Rec: 11/17/23 09:45 [facility] [id number]) Physical Therapy Assessment Assessment Summary Assessment Kacy was educated on urge deference technique and bladder retraining today. I also started EMG biofeedback for her and she did well with this. She does have better pelvic floor recruitment with additional of ball squeeze Physical Therapy Plan Frequency and Duration Frequency of Treatment 1x/Week Duration of treatment (weeks) 12 Plan of Care Start Date 11/10/23 Plan of Care End Date 02/02/24 Therapeutic Interventions Therapeutic Interventions Home Exercise Program, Neuromuscular Re-education, Patient/Caregiver Education, Self-Care/Home Management, Therapeutic Exercises Modalities Biofeedback Next Visit Focus/Plan Next Note Type Treatment Note Next Visit Plan continue with EMG biofeedback for pelvic floor strengthening and endurance training. Review urge deference technique
--- NOTE | 2023-11-24 09:45 | PT.OTN ---
Current Diagnoses Mixed incontinence (11/24/23) Physical Therapy Treatment Note PT-OP-A Visit Information Start: 11/10/23 08:07 Freq: Status: Active Protocol: Document 11/24/23 09:04 [facility] (Rec: 11/24/23 09:45 [facility] [id number]) Out-Patient Physical Therapy Visit Information Visit Information Visit Type Treatment Note Visit Start Time 09:04 Visit Stop Time 09:45 Visit Number 3 PT-OP-B Current Condition Start: 11/10/23 08:07 Freq: Status: Active Protocol: Document 11/10/23 09:00 [facility] (Rec: 11/10/23 08:10 [facility] [id number]) Current Condition History of Current Condition Onset Date a couple of years ago History of Current Condition 73 year old female with mixed urinary incontinence and poor urinary sphincter tone Symptoms began with strong cough and sneeze and now she is also experiencing the urge to void as well. She wears a pad daily and she usually doesn't need to change it. Kacy reports she drinks a lot of water, she drinks 2 coffee 's per day. She has daily bowel movements but has had some recent c/o fecal smearing and very soft stool. 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 Prior Treatments and Tests hx of vuvlar cancer surgery approx 4 years ago., hx of 1 vaginal delivery. PT-OP-C Subjective Start: 11/10/23 08:07 Freq: Status: Active Protocol: Document 11/24/23 09:04 [facility] (Rec: 11/24/23 09:45 [facility] [id number]) OP-PT Subjective Patient Comments Patient Comments pt reports she has been doing the exercises, her urgency has not been that bad. Maybe 1-2 leaks this past week at the most PT-OP-I Pelvic Floor Start: 11/10/23 08:07 Freq: Status: Active Protocol: Document 11/10/23 09:00 [facility] (Rec: 11/10/23 13:15 [facility] [id number]) Pelvic Floor Assessment Urine Pelvic Floor Surgery Yes Urinary Symptoms Urge Sensation,Incomplete Emptying Other Urinary Symptoms urinary leakage with vigorous activity and strong urge to go Leakage Size Medium Leakage Cause Cough,Lifting,Sneeze,Urge Leaks Per Day 1-2 Voiding Frequency 6 Nocturia 1 Pads Used In 24 Hours 1-2 Urine Pad Type Maxi Pad Pelvic Clock Pelvic Clock 12-3 Atrophy Pelvic Clock 3-6 Atrophy Pelvic Clock 6-9 Atrophy Pelvic Clock 9-12 Atrophy Contraction Ability Voluntary Contraction Weak Voluntary Relaxation Weak Manual Muscle Testing Left 2 Manual Muscle Testing Right 2 Manual Muscle Testing Anterior 1 Manual Muscle Testing Posterior 2 Muscle Endurance (Seconds) 3 Comments Pelvic Floor Comments the left side of the levator ani has more tone to palpation than the right side but is also more guarded PT-OP-J Posture/Palpation/Skin Start: 11/10/23 08:07 Freq: Status: Active Protocol: Document 11/10/23 09:00 [facility] (Rec: 11/10/23 13:18 [facility] [id number]) Posture Evaluation Position Sitting Evaluation View Lateral Head/C-Spine Posture Forward Head T-Spine Posture Increased Kyphosis Shoulder Posture (L) Rounded,(R) Rounded Comments Posture Comments pt is seated in a forward posture with posterior pelvic tilt and forward lean. She presents with tightness of the pec minor bilaterally and has rounted shoulders. Tightness of the upper abdominal wall with thoracic rounding. PT-OP-M Strength Start: 11/10/23 08:07 Freq: Status: Active Protocol: Document 11/10/23 09:00 [facility] (Rec: 11/10/23 13:15 [facility] [id number]) Trunk Strength Trunk Manual Muscle Testing Testing Position Supine Flexion 3 Fair Comments decreased tone of the transverse abodominal musculature and decreased abdominal strength PT-OP-Q Treatments Start: 11/10/23 08:07 Freq: Status: Active Protocol: Document 11/24/23 09:04 [facility] (Rec: 11/24/23 09:45 [facility] [id number]) Therapeutic Exercises Supine Exercises roll outs with theraband Reps/Minutes 3 x 10 reps level 3 theraband quick pelvic floor contractions Reps/Minutes x 10 ball squeeze with pelvic floor engagement Reps/Minutes x 10 reps Comments average 22 and max of 54 pelvic floor long holds with EMG biofeedback Reps/Minutes x 10 reps holding 10 seconds relax 10 seconds Comments 20.0 and 57.7 max EMG biofeedback resting tone Supine Exercise Name 3.0 resting tone Comments worked on relaxed awareness PT-OP-T Assessment and Plan Start: 11/10/23 08:07 Freq: Status: Active Protocol: Document 11/24/23 09:04 [facility] (Rec: 11/24/23 09:45 [facility] [id number]) Physical Therapy Assessment Assessment Summary Assessment good improvement of strength on EMG biofeedback, Kacy increased both endurance and max contraction. Physical Therapy Plan Frequency and Duration Frequency of Treatment 1x/Week Duration of treatment (weeks) 12 Plan of Care Start Date 11/10/23 Plan of Care End Date 02/02/24 Next Visit Focus/Plan Next Note Type Treatment Note Next Visit Plan continue with EMG biofeedback for pelvic floor strengthening and endurance training. Review urge deference technique
--- NOTE | 2023-12-01 09:44 | PT.OTN ---
Current Diagnoses Mixed incontinence (12/01/23) Physical Therapy Treatment Note PT-OP-A Visit Information Start: 11/10/23 08:07 Freq: Status: Active Protocol: Document 11/24/23 09:04 [facility] (Rec: 11/24/23 09:45 [facility] [id number]) Out-Patient Physical Therapy Visit Information Visit Information Visit Type Treatment Note Visit Start Time 09:04 Visit Stop Time 09:45 Visit Number 3 PT-OP-B Current Condition Start: 11/10/23 08:07 Freq: Status: Active Protocol: Document 11/10/23 09:00 [facility] (Rec: 11/10/23 08:10 [facility] [id number]) Current Condition History of Current Condition Onset Date a couple of years ago History of Current Condition 73 year old female with mixed urinary incontinence and poor urinary sphincter tone Symptoms began with strong cough and sneeze and now she is also experiencing the urge to void as well. She wears a pad daily and she usually doesn't need to change it. Ashley reports she drinks a lot of water, she drinks 2 coffee 's per day. She has daily bowel movements but has had some recent c/o fecal smearing and very soft stool. 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 Prior Treatments and Tests hx of vuvlar cancer surgery approx 4 years ago., hx of 1 vaginal delivery. PT-OP-C Subjective Start: 11/10/23 08:07 Freq: Status: Active Protocol: Document 12/01/23 09:04 [facility] (Rec: 12/01/23 09:44 [facility] [id number]) OP-PT Subjective Patient Comments Patient Comments pt reports her urgency is much better than it was and she is more aware. Very small leaks this week. PT-OP-I Pelvic Floor Start: 11/10/23 08:07 Freq: Status: Active Protocol: Document 11/10/23 09:00 [facility] (Rec: 11/10/23 13:15 [facility] [id number]) Pelvic Floor Assessment Urine Pelvic Floor Surgery Yes Urinary Symptoms Urge Sensation,Incomplete Emptying Other Urinary Symptoms urinary leakage with vigorous activity and strong urge to go Leakage Size Medium Leakage Cause Cough,Lifting,Sneeze,Urge Leaks Per Day 1-2 Voiding Frequency 6 Nocturia 1 Pads Used In 24 Hours 1-2 Urine Pad Type Maxi Pad Pelvic Clock Pelvic Clock 12-3 Atrophy Pelvic Clock 3-6 Atrophy Pelvic Clock 6-9 Atrophy Pelvic Clock 9-12 Atrophy Contraction Ability Voluntary Contraction Weak Voluntary Relaxation Weak Manual Muscle Testing Left 2 Manual Muscle Testing Right 2 Manual Muscle Testing Anterior 1 Manual Muscle Testing Posterior 2 Muscle Endurance (Seconds) 3 Comments Pelvic Floor Comments the left side of the levator ani has more tone to palpation than the right side but is also more guarded PT-OP-J Posture/Palpation/Skin Start: 11/10/23 08:07 Freq: Status: Active Protocol: Document 11/10/23 09:00 [facility] (Rec: 11/10/23 13:18 [facility] [id number]) Posture Evaluation Position Sitting Evaluation View Lateral Head/C-Spine Posture Forward Head T-Spine Posture Increased Kyphosis Shoulder Posture (L) Rounded,(R) Rounded Comments Posture Comments pt is seated in a forward posture with posterior pelvic tilt and forward lean. She presents with tightness of the pec minor bilaterally and has rounted shoulders. Tightness of the upper abdominal wall with thoracic rounding. PT-OP-M Strength Start: 11/10/23 08:07 Freq: Status: Active Protocol: Document 11/10/23 09:00 [facility] (Rec: 11/10/23 13:15 [facility] [id number]) Trunk Strength Trunk Manual Muscle Testing Testing Position Supine Flexion 3 Fair Comments decreased tone of the transverse abodominal musculature and decreased abdominal strength PT-OP-Q Treatments Start: 11/10/23 08:07 Freq: Status: Active Protocol: Document 12/01/23 09:04 [facility] (Rec: 12/01/23 09:44 [facility] [id number]) Therapeutic Exercises Supine Exercises templates for coordination and eccentric control of the pelvic floor Supine Exercise Name EMG biofeedback Reps/Minutes x 5 min roll outs with theraband Reps/Minutes 3 x 10 reps level 3 theraband quick pelvic floor contractions Reps/Minutes x 10 ball squeeze with pelvic floor engagement Reps/Minutes x 10 reps pelvic floor long holds with EMG biofeedback Reps/Minutes x 10 reps holding 10 seconds Comments 20.0 and 57.7 max EMG biofeedback resting tone Supine Exercise Name 2.0 resting tone Comments worked on relaxed awareness Self-Care/Home Management Treatment Education Patient Education Home Exercise Program Other Education urge deference technique reviewed PT-OP-T Assessment and Plan Start: 11/10/23 08:07 Freq: Status: Active Protocol: Document 12/01/23 09:04 [facility] (Rec: 12/01/23 09:44 [facility] [id number]) Physical Therapy Assessment Goals 3 Impairment Mixed urinary incontinence that is occuring daily Short Term Goal (STG) Ashley is educated in bladder retraining and urge deference technique STG Duration 4 weeks Assisted Goal (LTG) Ashley reports a overall reduction of urinary urgency and stress incontnence and she is able to decrease pad use to a mini pad only LTG Duration 12 weeks 2 Impairment Decreased pelvic floor muscle endurance as pt is only able to sustain a pelvic floor contraction for a few seconds in supine Short Term Goal (STG) Ashley is able to increase her endurance to a 10 second hold in supine STG Duration [address] [employer] Goal (LTG) Ashley is able to increase her endurance to a 5 second hold in standing LTG Duration 12 weeks 1 Impairment Decreased pelvic floor strength with 2/5 MMT for all wild of the levator ani Short Term Goal (STG) Ashley is educated on a HEP for pelivc floor muscle training STG Duration 5 weeks Assisted Goal (LTG) Ashley is able to increase her pelvic floor muscle strength by at least one muscle grade for improved support of her bladder LTG Duration 12 weeks Assessment Summary Assessment ashley needed review of hip ER exercises as she had forgotten , she is doing much better overall with decreased urgency . I did have her schedule a recheck in 1 month as I want to check back in on how she is doing with her exercise program Physical Therapy Plan Frequency and Duration Frequency of Treatment 1x/Week Duration of treatment (weeks) 12 Plan of Care Start Date 11/10/23 Plan of Care End Date 02/02/24 Therapeutic Interventions Therapeutic Interventions Home Exercise Program, Neuromuscular Re-education, Patient/Caregiver Education, Self-Care/Home Management, Therapeutic Exercises Modalities Biofeedback Next Visit Focus/Plan Next Note Type Treatment Note Next Visit Plan continue with EMG biofeedback for pelvic floor strengthening and endurance training. Review urge deference technique
--- NOTE | 2023-12-01 16:31 | PT.OTN ---
Current Diagnoses Mixed incontinence (12/01/23) Physical Therapy Treatment Note PT-OP-A Visit Information Start: 11/10/23 08:07 Freq: Status: Active Protocol: Document 12/01/23 09:00 [facility] (Rec: 12/01/23 16:30 [facility] [id number]) Out-Patient Physical Therapy Visit Information Visit Information Visit Type Treatment Note Visit Start Time 09:00 Visit Stop Time 09:45 Visit Number 4 PT-OP-B Current Condition Start: 11/10/23 08:07 Freq: Status: Active Protocol: Document 11/10/23 09:00 [facility] (Rec: 11/10/23 08:10 [facility] [id number]) Current Condition History of Current Condition Onset Date a couple of years ago History of Current Condition 73 year old female with mixed urinary incontinence and poor urinary sphincter tone Symptoms began with strong cough and sneeze and now she is also experiencing the urge to void as well. She wears a pad daily and she usually doesn't need to change it. Ashley reports she drinks a lot of water, she drinks 2 coffee 's per day. She has daily bowel movements but has had some recent c/o fecal smearing and very soft stool. 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 Prior Treatments and Tests hx of vuvlar cancer surgery approx 4 years ago., hx of 1 vaginal delivery. PT-OP-C Subjective Start: 11/10/23 08:07 Freq: Status: Active Protocol: Document 12/01/23 09:00 [facility] (Rec: 12/01/23 09:44 [facility] [id number]) OP-PT Subjective Patient Comments Patient Comments pt reports her urgency is much better than it was and she is more aware. Very small leaks this week. PT-OP-I Pelvic Floor Start: 11/10/23 08:07 Freq: Status: Active Protocol: Document 11/10/23 09:00 [facility] (Rec: 11/10/23 13:15 [facility] [id number]) Pelvic Floor Assessment Urine Pelvic Floor Surgery Yes Urinary Symptoms Urge Sensation,Incomplete Emptying Other Urinary Symptoms urinary leakage with vigorous activity and strong urge to go Leakage Size Medium Leakage Cause Cough,Lifting,Sneeze,Urge Leaks Per Day 1-2 Voiding Frequency 6 Nocturia 1 Pads Used In 24 Hours 1-2 Urine Pad Type Maxi Pad Pelvic Clock Pelvic Clock 12-3 Atrophy Pelvic Clock 3-6 Atrophy Pelvic Clock 6-9 Atrophy Pelvic Clock 9-12 Atrophy Contraction Ability Voluntary Contraction Weak Voluntary Relaxation Weak Manual Muscle Testing Left 2 Manual Muscle Testing Right 2 Manual Muscle Testing Anterior 1 Manual Muscle Testing Posterior 2 Muscle Endurance (Seconds) 3 Comments Pelvic Floor Comments the left side of the levator ani has more tone to palpation than the right side but is also more guarded PT-OP-J Posture/Palpation/Skin Start: 11/10/23 08:07 Freq: Status: Active Protocol: Document 11/10/23 09:00 [facility] (Rec: 11/10/23 13:18 [facility] [id number]) Posture Evaluation Position Sitting Evaluation View Lateral Head/C-Spine Posture Forward Head T-Spine Posture Increased Kyphosis Shoulder Posture (L) Rounded,(R) Rounded Comments Posture Comments pt is seated in a forward posture with posterior pelvic tilt and forward lean. She presents with tightness of the pec minor bilaterally and has rounted shoulders. Tightness of the upper abdominal wall with thoracic rounding. PT-OP-M Strength Start: 11/10/23 08:07 Freq: Status: Active Protocol: Document 11/10/23 09:00 [facility] (Rec: 11/10/23 13:15 [facility] [id number]) Trunk Strength Trunk Manual Muscle Testing Testing Position Supine Flexion 3 Fair Comments decreased tone of the transverse abodominal musculature and decreased abdominal strength PT-OP-Q Treatments Start: 11/10/23 08:07 Freq: Status: Active Protocol: Document 12/01/23 09:00 [facility] (Rec: 12/01/23 09:44 [facility] [id number]) Therapeutic Exercises Supine Exercises templates for coordination and eccentric control of the pelvic floor Supine Exercise Name EMG biofeedback Reps/Minutes x 5 min roll outs with theraband Reps/Minutes 3 x 10 reps level 3 theraband quick pelvic floor contractions Reps/Minutes x 10 ball squeeze with pelvic floor engagement Reps/Minutes x 10 reps pelvic floor long holds with EMG biofeedback Reps/Minutes x 10 reps holding 10 seconds Comments 20.0 and 57.7 max EMG biofeedback resting tone Supine Exercise Name 2.0 resting tone Comments worked on relaxed awareness Self-Care/Home Management Treatment Education Patient Education Home Exercise Program Other Education urge deference technique reviewed PT-OP-T Assessment and Plan Start: 11/10/23 08:07 Freq: Status: Active Protocol: Document 12/01/23 09:00 [facility] (Rec: 12/01/23 09:44 [facility] [id number]) Physical Therapy Assessment Goals 3 Impairment Mixed urinary incontinence that is occuring daily Short Term Goal (STG) Ashley is educated in bladder retraining and urge deference technique STG Duration 4 weeks Shelter Goal (LTG) Ashley reports a overall reduction of urinary urgency and stress incontnence and she is able to decrease pad use to a mini pad only LTG Duration 12 weeks 2 Impairment Decreased pelvic floor muscle endurance as pt is only able to sustain a pelvic floor contraction for a few seconds in supine Short Term Goal (STG) Ashley is able to increase her endurance to a 10 second hold in supine STG Duration 5 weeks [employer] Goal (LTG) Ashley is able to increase her endurance to a 5 second hold in standing LTG Duration 12 weeks 1 Impairment Decreased pelvic floor strength with 2/5 MMT for all wild of the levator ani Short Term Goal (STG) Ashley is educated on a HEP for pelivc floor muscle training STG Duration 5 weeks Shelter Goal (LTG) Ashley is able to increase her pelvic floor muscle strength by at least one muscle grade for improved support of her bladder LTG Duration 12 weeks Assessment Summary Assessment ashley needed review of hip ER exercises as she had forgotten , she is doing much better overall with decreased urgency . I did have her schedule a recheck in 1 month as I want to check back in on how she is doing with her exercise program Physical Therapy Plan Frequency and Duration Frequency of Treatment 1x/Week Duration of treatment (weeks) 12 Plan of Care Start Date 11/10/23 Plan of Care End Date 02/02/24 Therapeutic Interventions Therapeutic Interventions Home Exercise Program, Neuromuscular Re-education, Patient/Caregiver Education, Self-Care/Home Management, Therapeutic Exercises Modalities Biofeedback Next Visit Focus/Plan Next Note Type Treatment Note Next Visit Plan continue with EMG biofeedback for pelvic floor strengthening and endurance training. Review urge deference technique
--- NOTE | 2023-12-20 17:16 | PT.OTN ---
Current Diagnoses Mixed incontinence (12/20/23) Physical Therapy Treatment Note PT-OP-A Visit Information Start: 11/10/23 08:07 Freq: Status: Active Protocol: Document 12/20/23 14:30 [facility] (Rec: 12/20/23 15:16 [facility] [id number]) Out-Patient Physical Therapy Visit Information Visit Information Visit Type Treatment Note PT-OP-B Current Condition Start: 11/10/23 08:07 Freq: Status: Active Protocol: Document 11/10/23 09:00 [facility] (Rec: 11/10/23 08:10 [facility] [id number]) Current Condition History of Current Condition Onset Date a couple of years ago History of Current Condition 73 year old female with mixed urinary incontinence and poor urinary sphincter tone Symptoms began with strong cough and sneeze and now she is also experiencing the urge to void as well. She wears a pad daily and she usually doesn't need to change it. Kacy reports she drinks a lot of water, she drinks 2 coffee 's per day. She has daily bowel movements but has had some recent c/o fecal smearing and very soft stool. 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 Prior Treatments and Tests hx of vuvlar cancer surgery approx 4 years ago., hx of 1 vaginal delivery. PT-OP-C Subjective Start: 11/10/23 08:07 Freq: Status: Active Protocol: Document 12/20/23 14:30 [facility] (Rec: 12/20/23 15:16 [facility] [id number]) OP-PT Subjective Patient Comments Patient Comments pt notes she has been doing okay with her symptoms and hasn't had any problems PT-OP-I Pelvic Floor Start: 11/10/23 08:07 Freq: Status: Active Protocol: Document 11/10/23 09:00 [facility] (Rec: 11/10/23 13:15 [facility] [id number]) Pelvic Floor Assessment Urine Pelvic Floor Surgery Yes Urinary Symptoms Urge Sensation,Incomplete Emptying Other Urinary Symptoms urinary leakage with vigorous activity and strong urge to go Leakage Size Medium Leakage Cause Cough,Lifting,Sneeze,Urge Leaks Per Day 1-2 Voiding Frequency 6 Nocturia 1 Pads Used In 24 Hours 1-2 Urine Pad Type Maxi Pad Pelvic Clock Pelvic Clock 12-3 Atrophy Pelvic Clock 3-6 Atrophy Pelvic Clock 6-9 Atrophy Pelvic Clock 9-12 Atrophy Contraction Ability Voluntary Contraction Weak Voluntary Relaxation Weak Manual Muscle Testing Left 2 Manual Muscle Testing Right 2 Manual Muscle Testing Anterior 1 Manual Muscle Testing Posterior 2 Muscle Endurance (Seconds) 3 Comments Pelvic Floor Comments the left side of the levator ani has more tone to palpation than the right side but is also more guarded PT-OP-J Posture/Palpation/Skin Start: 11/10/23 08:07 Freq: Status: Active Protocol: Document 11/10/23 09:00 [facility] (Rec: 11/10/23 13:18 [facility] [id number]) Posture Evaluation Position Sitting Evaluation View Lateral Head/C-Spine Posture Forward Head T-Spine Posture Increased Kyphosis Shoulder Posture (L) Rounded,(R) Rounded Comments Posture Comments pt is seated in a forward posture with posterior pelvic tilt and forward lean. She presents with tightness of the pec minor bilaterally and has rounted shoulders. Tightness of the upper abdominal wall with thoracic rounding. PT-OP-M Strength Start: 11/10/23 08:07 Freq: Status: Active Protocol: Document 11/10/23 09:00 [facility] (Rec: 11/10/23 13:15 [facility] [id number]) Trunk Strength Trunk Manual Muscle Testing Testing Position Supine Flexion 3 Fair Comments decreased tone of the transverse abodominal musculature and decreased abdominal strength PT-OP-Q Treatments Start: 11/10/23 08:07 Freq: Status: Active Protocol: Document 12/20/23 14:30 [facility] (Rec: 12/20/23 15:16 [facility] [id number]) Therapeutic Exercises Supine Exercises templates for coordination and eccentric control of the pelvic floor Supine Exercise Name EMG biofeedback Reps/Minutes x 5 min roll outs with theraband Reps/Minutes 3 x 10 reps level 3 theraband quick pelvic floor contractions Reps/Minutes x 10 ball squeeze with pelvic floor engagement Reps/Minutes x 10 reps pelvic floor long holds with EMG biofeedback Reps/Minutes x 10 reps holding 10 seconds Comments 20.0 and 57.7 max EMG biofeedback resting tone Supine Exercise Name resting tone at baseline now. Comments worked on relaxed awareness PT-OP-T Assessment and Plan Start: 11/10/23 08:07 Freq: Status: Active Protocol: Document 12/20/23 14:30 [facility] (Rec: 12/20/23 15:16 [facility] [id number]) Physical Therapy Assessment Goals 3 Impairment Mixed urinary incontinence that is occuring daily Short Term Goal (STG) Kacy is educated in bladder retraining and urge deference technique goal met STG Duration 4 weeks Bulk Picker Goal (LTG) Kacy reports a overall reduction of urinary urgency and stress incontnence and she is able to decrease pad use to a mini pad only Kacy notes she is using a small pad now and has been able to make it to the bathroom without leaking. LTG Duration 12 weeks 2 Impairment Decreased pelvic floor muscle endurance as pt is only able to sustain a pelvic floor contraction for a few seconds in supine Short Term Goal (STG) Kacy is able to increase her endurance to a 10 second hold in supine STG Duration 5 weeks Skilled Nursing Goal (LTG) Kacy is able to increase her endurance to a 5 second hold in standing LTG Duration 12 weeks 1 Impairment Decreased pelvic floor strength with 2/5 MMT for all wild of the levator ani Short Term Goal (STG) Kacy is educated on a HEP for pelivc floor muscle training STG Duration 5 weeks Skilled Nursing Goal (LTG) Kacy is able to increase her pelvic floor muscle strength by at least one muscle grade for improved support of her bladder LTG Duration 12 weeks Assessment Summary Assessment Kacy is no longer experiencing leakage and is doing much better overall with strengh of the pelvic floor. I did encourage her to continue with her exercise program to prevent any future symptoms. At this point she is independent with her home program and will be discharged . Physical Therapy Plan Discharge Physical Therapy Discharge Reasons Goals Met Discharge Comments pt has met all her established goals and she will be discharged from PT at this time.
== END 2023-12-22 13:02 | disposition home or self-care (01) ==
LOC: PHYS 14:30
PROVIDERS: PCP Family Medicine; Referring Provider Urology; Visit Provider Urology
DX: N39.46 Mixed incontinence (principal)
CPT/HCPCS: 97110; 97161; 97535

== ENCOUNTER 2023-12-28 08:36 | Emergency (ER) | payer MEDICARE, OTHER, SELFPAY ==
[2023-12-28 08:45] VITALS: BP 157/78; PULSE 70; RESP 16; TEMP 36.5; O2SAT 97; BMI 28.3
--- NOTE | 2023-12-28 08:49 | ED_ITS ---
HPI - Nausea/Vomiting/Diarrhea General Chief complaint: Nausea/Vomiting/Diarrhea Stated complaint: Diarrhea Time Seen by Provider: 12/28/23 08:46 Source: patient and family Mode of arrival: Ambulatory Limitations: no limitations History of Present Illness HPI Narrative: Patient is a 73-year-old female who is here for evaluation of diarrhea that started this morning. So far episodes. Nonbloody. No recent travel. No recent antibiotics. Patient's provided quite a bit of the HPI. She was recently started on Aricept secondary to Alzheimer's. Patient's states she also gets very anxious and the diagnosis of Alzheimer's was given at the same time that her dog . She also just increased the dose of the Aricept within the past 24 hours. No vomiting. No fevers. Related Data Home Medications Medication Instructions Recorded Confirmed atorvastatin 40 mg tablet 80 mg PO DAILY 12/26/23 12/26/23 donepezil 10 mg tablet 10 mg PO DAILY 12/26/23 12/26/23 estradiol 0.01% (0.1 mg/gram) vaginal QWEEK 12/26/23 12/26/23 vaginal cream levothyroxine 112 mcg tablet 112 mcg PO DAILY 12/26/23 12/26/23 (Synthroid) lisinopril 10 mg tablet 10 mg PO DAILY 12/26/23 12/26/23 omeprazole 20 mg capsule,delayed 20 mg PO DAILY 12/26/23 12/26/23 release Allergies Allergy/AdvReac Type Severity Reaction Status Date / Time No Known Drug Allergies Allergy Unverified 12/26/23 08:02 Review of Systems Constitutional Constitutional: Reports system reviewed and no additional complaints, except as documented Gastrointestinal Gastrointestinal: Reports system reviewed and no additional complaints, except as documented Genitourinary Genitourinary: Reports system reviewed and no additional complaints, except as documented Integumentary/Breasts Skin/Breast: Reports system reviewed and no additional complaints, except as documented Patient History Medical History Benign essential HTN Hypothyroidism Hyperlipidemia Alzheimer's dementia Social History Smoking Status: Never smoker Smoking Status: Never smoker alcohol intake frequency: 0-2 drinks per day Substance Use Type: does not use Exam Initial Vital Signs Initial Vital Signs: Vital Signs Temperature 97.7 F 12/28/23 08:45 Pulse Rate 70 12/28/23 08:45 Respiratory Rate 16 12/28/23 08:45 Blood Pressure 157/78 H 12/28/23 08:45 Pulse Oximetry 97 12/28/23 08:45 Oxygen Delivery Method Room Air 12/28/23 08:45 Const General: cooperative, comfortable and No ill appearing Resp Effort & Inspection: normal respiratory effort Cardio Rate: regular rate GI Inspection: normal to inspection and non-distended Palpation: soft and No tender Skin General: no rashes or lesions noted Course Orders Ordered: ED Orders 12/28/23 08:50 Ictotest Urine Stat Urine Microscopic Stat Vital Signs Vital signs: Vital Signs - 8 hr 12/28/23 08:45 Temperature 97.7 F Pulse Rate 70 Respiratory Rate 16 Blood Pressure 157/78 H Pulse Oximetry 97 Oxygen Delivery Method Room Air MDM - Nausea/Vomiting/Diarrhea Lab Data Labs: Urine Dip Bedside Urine Glucose Negative Bedside Urine Bilirubin + 1 Bedside Urine Ketone - Negative Urine Specific [place] 1.030 Bedside Urine Occult Blood - Negative Bedside Urine pH 6.0 Bedside Urine Protein - Negative Bedside Urine Urobilinogen - Negative Bedside Urine Nitrite - Negative Bedside Urine Leukocytes - Negative Esterase MDM Narrative Medical decision making narrative: Patient has a benign exam. Is not clinically dehydrated. Soft abdomen. No blood in the stool. No recent travel. No recent antibiotics. Symptoms just been going on since this morning. Is tolerating oral intake. No indication for radiologic studies. No indication for labs. I did discuss this with the patient. Discussed antidiarrheal medicines she can try. Will discharge patient home with return precautions. They expressed understanding and agreement. Discharge Plan Departure Patient Disposition: Home Clinical Impression: Diarrhea Instructions: Diarrhea Activity Restrictions/Additional Instructions: There is a very good chance that the diarrhea is caused by the Aricept/donepezil. This is a fairly common side effect of this medicine. You can try [id number] antidiarrheal medicines such as Imodium/loperamide. Be sure that you were increasing your fluid intake. I I would not recommend that you stop taking the Aricept as there is a chance that the diarrhea does go away with time. You do need to talk with your primary care doctor about this. Return to the emergency department for new symptoms. Prescriptions: No Action donepezil 10 mg tablet 10 mg PO DAILY levothyroxine [Synthroid] 112 mcg tablet 112 mcg PO DAILY lisinopril 10 mg tablet 10 mg PO DAILY omeprazole 20 mg capsule,delayed release(DR/EC) 20 mg PO DAILY estradiol 0.01 % (0.1 mg/gram) cream vaginal QWEEK atorvastatin 40 mg tablet 80 mg PO DAILY Referrals: Chelita Delatorre DO [Primary Care Provider] - Stand Alone Forms: Patient Portal/API
[2023-12-28 09:03] LABS: Ictotest Urine Negative (Negative)
[2023-12-28 09:04] LABS: Urine Volume 10mL (spun)
[2023-12-28 09:05] LABS: Bacteria Urine None Seen; RBC Urine None Seen (0-5/HPF); Squamous Epithelial Cell Urine 10-30 /HPF (0-5/HPF); WBC Urine None Seen (0-5/HPF)
[2023-12-28 09:06] LABS: Culture Indicated Urine Cult Not Indicated
== END 2023-12-28 09:09 | disposition home or self-care (01) ==
PROVIDERS: Emergency Provider Emergency Medicine; PCP Family Medicine
DX: R19.7 Diarrhea, unspecified (principal)
CPT/HCPCS: 81003; 81015; 99281; 99282

== ENCOUNTER → 2025-02-22 12:32 | Outpatient (CLI) | payer MEDICARE, OTHER, SELFPAY ==
[2025-02-22 13:01] LABS: Hematocrit 37.2 % (36-46); Hemoglobin 12.7 g/dL (12.0-16.0); Mean Corpuscular HGB Conc 34.1 % (30-36); Mean Corpuscular Hemoglobin 33.2 PG (26-34); Mean Corpuscular Volume 97.1 fL (80-100); Platelet Count 306 X10^3/uL (150-400); Red Blood Cell Count 3.83 X10^6/uL (4.0-5.2); Red Cell Distribution Width 14.2 % (11.6-14.8); White Blood Cell Count 4.7 X10^3/uL (4.5-11.0)
[2025-02-22 13:21] LABS: Alanine Aminotransferase 76 IU/L (<35); Albumin 4.7 g/dL (3.5-5.0); Albumin Globulin Ratio 1.6 (1.0-2.8); Alkaline Phosphatase 82 U/L (38-126); Aspartate Aminotransferase 89 IU/L (14-36); BUN Creatinine Ratio 11.7 (6-22); Bilirubin Total 0.6 mg/dL (0.2-1.3); Blood Urea Nitrogen 12 mg/dL (7-17); Calcium 9.1 mg/dL (8.4-10.2); Carbon Dioxide 29 mmol/L (22-32); Chloride 101 mmol/L (98-107); Estimated Glomerular Filt Rate 58 mL/min (>60); Glucose 98 mg/dL (70-99); HDL Cholesterol 90 mg/dL (40-60); HEMOLYSIS < 15 (0-50); Potassium 4.5 mmol/L (3.4-5.1); Sodium 137 mmol/L (137-145); Total Protein 7.7 g/dL (6.3-8.2); Triglycerides 139 mg/dL (35-150)
[2025-02-22 13:34] LABS: Cholesterol 346 mg/dL (140-199); LDL Cholesterol Calculated 228 mg/dL (<100)
[2025-02-22 13:39] LABS: Hemoglobin A1C% w Est Avg Glu 5.9 % (4.0-6.0)
[2025-02-22 14:14] LABS: Vitamin B12 809 pg/mL (239-931)
[2025-02-22 17:46] LABS: Free T4, Direct Thyroxine < 0.07 ng/dL (0.78-2.19)
== END ==
PROVIDERS: PCP Family Medicine; Referring Provider Family Medicine; Visit Provider Family Medicine
DX: Z00.00 Encounter for general adult medical examination without abnormal findings (principal); I10 Essential (primary) hypertension; E78.5 Hyperlipidemia, unspecified; E03.9 Hypothyroidism, unspecified; G30.9 Alzheimer's disease, unspecified; F02.80 Dementia in other diseases classified elsewhere, unspecified severity, without behavioral disturbance, psychotic disturbance, mood disturbance, and anxiety
CPT/HCPCS: 36415; 80053; 80061; 82607; 83036; 84439; 84443; 85027

== ENCOUNTER → 2025-08-21 10:13 | Outpatient (CLI) | payer MEDICARE, OTHER, SELFPAY ==
[2025-08-21 10:47] LABS: Cholesterol 199 mg/dL (140-199); HDL Cholesterol 77 mg/dL (40-60); Triglycerides 88 mg/dL (35-150)
[2025-08-21 11:16] LABS: TSH w/ Reflex to FT4 0.34 uIU/mL (0.47-4.68)
[2025-08-21 12:20] LABS: Free T4, Direct Thyroxine 1.84 ng/dL (0.78-2.19)
== END ==
PROVIDERS: PCP Family Medicine; Referring Provider Family Medicine; Visit Provider Family Medicine
DX: E03.9 Hypothyroidism, unspecified (principal); E78.5 Hyperlipidemia, unspecified
CPT/HCPCS: 36415; 80061; 84439; 84443